=== PATIENT | male | born 1945 | race Caucasian/White ===

== ENCOUNTER → 2023-07-05 | Emergency (ER) | payer MEDICARE ==
--- OUTSIDE RECORDS SUMMARY | 2023-07-05 11:30 | XMS REPORT | Continuity of Care Document ---
Author Name Unknown Address [address] [place] [address] [place] [address] [facility]connect Address [address] [place] [address] [address] [place] [address] Care Team Providers Care Certified Nurses' Aide Name Role Phone Bogdanowicz_J Attending Clinician Unavailable Hunt_A Attending Clinician Unavailable Williams_V Attending Clinician Unavailable Bogdanowicz_J Admitting Clinician Unavailable Hunt_A Admitting Clinician Unavailable Williams_V Admitting Clinician Unavailable Payers Payer Name Policy Type Policy Number Effective Date Expirati on Date Source [employer] [facility] [facility] (MEDICARE REPLACEMENT HMO) [id number] 2021 00:00:00 Encounters Start Date/Time End Date/Time Encounter Type Admission Type Attending Clinicians Care Facility Care Department Encounter ID Source 2022-10-04 00:00:00 2022-10-04 00:00:00 Outpatient Bogdanowicz _J DMG DMG [id number] [facility] 2022-10-04 00:00:00 2022-10-04 00:00:00 Outpatient Bogdanowicz _J DMG DMG [id number] [facility] 2022-06-17 00:00:00 2022-06-17 00:00:00 Outpatient Hunt_A DMG DMG [id number] [facility] 2022-01-08 06:01:00 2022-01-08 06:01:00 Outpatient Williams_V DMG DMG [id number] [facility] 2021-12-17 01:10:00 2021-12-17 01:10:00 Outpatient Williams_V DMG DMG [id number] [facility] 2021-09-16 09:00:00 2021-09-16 09:00:00 Outpatient DMG DMG [id number] [facility]
--- NOTE | 2023-07-05 12:12 | EDPHYS ---
Physician Documentation [facility] Name: Manny Medina Age: 77 yrs Sex: Male : 1945 Arrival Date: 07/05/2023 Time: 11:27 Bed 12 Private MD: Reza Zavala E ED Physician Armando Steele HPI: 07/05 12:09 This 77 yrs old Male presents to ER via Ambulatory with complaints of Arm Injury. ms3 12:09 77-year-old male with past medical history of diabetes, hypertension, hypothyroidism ms3 presents to the emergency department for right shoulder pain status post fall on June 28, 2023. Patient states he saw Dr. Zavala yesterday and was sent to the hospital for imaging with right arm. Patient was called and informed he has a broken bone. Patient states his current discomfort is a 3/10. Patient denies any alleviating factors. Patient states pain is worse with movement. Historical: - Allergies: 11:39 No Known Drug Allergies; ll1 - PMHx: 11:39 Diabetes - NIDDM; Hypertension; Hypothyroidism; ll1 - PSHx: 11:39 hernia repair (Hypothyroidism); ll1 - Immunization history:: Adult Immunizations up to date. - Social history:: Smoking status: Patient/guardian denies using tobacco, the patient reports quitting approximately 30 years ago. ROS: 12:09 Constitutional: Negative for fever, and chills. Neck: Negative for injury, pain, and ms3 swelling, Cardiovascular: Negative for chest pain, and palpitations. Respiratory: Negative for shortness of breath, cough, wheezing, and pleuritic chest pain, Abdomen/GI: Negative for abdominal pain, nausea, vomiting, diarrhea, and constipation, 12:09 MS/extremity: Positive for Right shoulder pain, Exam: 12:09 Constitutional: This is a well developed, well nourished patient who is awake, alert, ms3 and in no acute distress. Head/Face: Normocephalic, atraumatic. Chest/axilla: Normal chest wall appearance and motion. Nontender with no deformity. Cardiovascular: Regular rate and rhythm with a normal S1 and S2. No gallops, murmurs, or rubs. Normal PMI, no JVD. No pulse deficits. Respiratory: Lungs have equal breath sounds bilaterally, clear to auscultation and percussion. No rales, rhonchi or wheezes noted. No increased work of breathing, no retractions or nasal flaring. Abdomen/GI: Soft, non-tender, with normal bowel sounds. No distension or tympany. No guarding or rebound. No evidence of tenderness throughout. 12:09 Musculoskeletal/extremity: Extremities: noted in the Right shoulder: ecchymosis, pain, tenderness, Vital Signs: 11:39 BP 162 / 78; Pulse 82; Resp 18; Temp 97.3; Pulse Ox 100% ; Weight 112.49 kg; Height 5 ll1 ft. 10 in. ; Pain 9/10; 11:39 Body Mass Index 35.58 (112.49 kg, 177.8 cm) ll1 11:39 Pain Scale: Adult ll1 MDM: 12:03 Patient medically screened. ms3 12:09 Differential diagnosis: closed fracture, contusion. Data reviewed: vital signs, nurses ms3 notes, and as a result, I will discharge patient. External Records Reviewed: Outpatient radiology: Right humerus x-ray performed on July 04, 2023 reveals comminuted fracture of right humeral head. Care significantly affected by the following chronic conditions: Diabetes, Hypertension. Counseling: I had a detailed discussion with the patient and/or guardian regarding the historical points, exam findings, and any diagnostic results supporting the discharge/admit diagnosis, radiology results, the need for outpatient follow up, to return to the emergency department if symptoms worsen or persist or if there are any questions or concerns that arise at home. ED course: Discussed radiograph report with patient and his daughter. Patient to follow-up with orthopedics in 1 to 2 days. Patient understands and agrees with plan. All questions were answered. Patient placed in shoulder immobilizer. Return precautions discussed to include numbness, increased pain, worsening symptoms, or any other concerns. On reevaluation patient's right arm neurovascular intact.. 07/05 12:08 Order name: Shoulder Immobilizer; Complete Time: 12:13 ms3 Administered Medications: No medications were administered Disposition Summary: 07/05/23 12:12 Discharge Ordered Notes: Location: Home ms3 Condition: Stable ms3 Diagnosis - Fracture of upper end of humerus ms3 Followup: ms3 - With: Jomar Godwin MD - When: 1 - 2 days - Reason: Recheck today's complaints Followup: ms3 - With: Segundo Reyes MD - When: 1 - 2 days - Reason: Recheck today's complaints Discharge Instructions: - Discharge Summary Sheet ms3 - Humerus Fracture Treated With Immobilization, [id number] ms3 Forms: - Medication Reconciliation Form ms3 - Thank You Letter ms3 - Antibiotic Education ms3 - Prescription Opioid Use ms3 - Patient Portal Instructions ms3 - Leadership Thank You Letter ms3 Signatures: Pam Quinteros RN RN ll1 Armando Steele DO DO ms3
--- NOTE | 2023-07-05 12:12 | ER ---
Nurse's Notes [facility] Name: Manny Medina Age: 77 yrs Sex: Male : 1945 Arrival Date: 07/05/2023 Time: 11:27 Bed 12 Private MD: Reza Zavala E Diagnosis: Fracture of upper end of humerus Presentation: 07/05 11:39 Chief complaint: Patient states: Tripped on Tuesday. R arm pain since. Had outpatient ll1 x-ray, was told to come to ED for broken arm. Coronavirus screen: Client denies travel out of the [place] in the last 14 days. At this time, the client does not indicate any symptoms associated with coronavirus-19. Ebola Screen: Patient denies travel to an Ebola-affected area in the 21 days before illness onset. Initial Sepsis Screen: Does the patient meet any 2 criteria? No. Patient's initial sepsis screen is negative. Does the patient have a suspected source of infection? No. Patient's initial sepsis screen is negative. Risk Assessment: Do you want to hurt yourself or someone else? Patient reports no desire to harm self or others. Onset of symptoms was June 28, 2023. 11:39 Method Of Arrival: Ambulatory ll1 11:39 Acuity: CHEPE 4 ll1 Historical: - Allergies: 11:39 No Known Drug Allergies; ll1 - PMHx: 11:39 Diabetes - NIDDM; Hypertension; Hypothyroidism; ll1 - PSHx: 11:39 hernia repair (Hypothyroidism); ll1 - Immunization history:: Adult Immunizations up to date. - Social history:: Smoking status: Patient/guardian denies using tobacco, the patient reports quitting approximately 30 years ago. Screenin:30 [facility] ED Fall Risk Assessment (Adult) History of falling in the last 3 months, kc6 including since admission Yes- single mechanical fall (1 pt) Confusion or Disorientation No (0 pts) Intoxicated or Sedated No (0 pts) Impaired Gait No (0 pts) Mobility Assist Device Used No (0 pt) Altered Elimination No (0 pt) Score/Fall Risk Level 0 - 2 = Low Risk. Abuse screen: Denies threats or abuse. Denies injuries from another. Nutritional screening: No deficits noted. Tuberculosis screening: No symptoms or risk factors identified. Assessment: 12:30 General: Appears in no apparent distress. comfortable, well groomed, well developed, kc6 Behavior is calm, cooperative, appropriate for age. Pain: Complains of pain in right arm. Neuro: Level of Consciousness is awake, alert, obeys commands, Oriented to person, place, time, situation, Appropriate for age. Cardiovascular: Capillary refill < 3 seconds. Respiratory: Airway is patent Trachea midline Respiratory effort is even, unlabored, Respiratory pattern is regular, symmetrical. GI: No signs and/or symptoms were reported involving the gastrointestinal system. : No signs and/or symptoms were reported regarding the genitourinary system. EENT: No signs and/or symptoms were reported regarding the EENT system. Derm: No signs and/or symptoms reported regarding the dermatologic system. Skin is intact, is healthy with good turgor, Skin is pink, warm \T\ dry. Musculoskeletal: Range of motion: limited in right shoulder. Vital Signs: 11:39 BP 162 / 78; Pulse 82; Resp 18; Temp 97.3; Pulse Ox 100% ; Weight 112.49 kg; Height 5 ll1 ft. 10 in. ; Pain 9/10; 11:39 Body Mass Index 35.58 (112.49 kg, 177.8 cm) ll1 11:39 Pain Scale: Adult ll1 ED Course: 11:29 Patient arrived in ED. rg4 11:29 Reza Zavala MD is Private Physician. rg4 11:41 Triage completed. ll1 11:41 Arm band placed on. ll1 11:54 Armando Steele DO is Attending Physician. ms3 12:11 Jomar Godwin MD is Referral Physician. ms3 12:11 Segundo Reyes MD is Referral Physician. ms3 12:13 Sling applied to right arm. ds4 12:30 Patient has correct armband on for positive identification. Bed in low position. Call kc6 light in reach. Side rails up X 1. Adult w/ patient. Client placed on continuous cardiac and pulse oximetry monitoring. NIBP monitoring applied. 12:30 Patient maintains SpO2 saturation greater than 95% on room air. kc6 12:40 No provider procedures requiring assistance completed. Patient did not have IV access kc6 during this emergency room visit. Administered Medications: No medications were administered Medication: 12:40 VIS not applicable for this client. kc6 Outcome: 12:12 Discharge ordered by . ms3 12:40 Discharged to home ambulatory, with family, kc6 12:40 Condition: good 12:40 Discharge instructions given to patient, family, Instructed on discharge instructions, follow up and referral plans. Demonstrated understanding of instructions, follow-up care, 12:40 Patient left the ED. kc6 Signatures: Darien Hancock ds4 Saima Nguyen rg4 Pam Quinteros, RN RN ll1 Armando Steele DO DO ms3 Hilary Greenberg, RN RN kc6
[2023-07-05 12:52] VITALS: BP 162/78; TEMP 97.3; O2SAT 100
== END ==
LOC: ER 11:27
DX: S42.201A Unspecified fracture of upper end of right humerus, initial encounter for closed fracture (principal); E11.9 Type 2 diabetes mellitus without complications; I10 Essential (primary) hypertension
CPT/HCPCS: 99284